=== PATIENT | female | born 1935 | race Caucasian/White ===

== ENCOUNTER 2017-08-26 08:00 | Inpatient (IN) ==
[2017-09-02] MEDS ORDERED: BUPivacaine Liposome/PF (Exparel) Inj 20ml vial INFIL ONE ×2 (06:00→06:52)
[2017-09-02] MEDS ORDERED: Tranexamic Acid 1,000 MG in Sodium Chloride 0.9% 100 ML IV SCH (06:00)
[2017-09-02] MEDS ORDERED: TRANEXAMIC ACID 1,000 MG / 10 ML VIAL ONE (06:00)
[2017-09-02] MEDS ORDERED: ceFAZolin Inj 2gm (Premix) 2 GM/50 ML BAG IV ONE ×2 (06:00)
[2017-09-02] MEDS ORDERED: LIDOCAINE W/ SODIUM BICARB 0.5 ML SYR ONE (06:00)
[2017-09-02] MEDS ORDERED: Ketorolac Inj 30 MG, Morphine Inj 5 MG, BUPivacaine Inj 0.25% PF 150 MG SPLASH ONE ×3 (06:00)
[2017-09-02] MEDS ORDERED: Lactated Ringers 1,000 ML PRIMARY IV ONE ×3 (06:00→11:23)
[2017-09-02] MEDS ORDERED: Lactated Ringers 1,000 ML PRIMARY IV SCH (06:00)
[2017-09-02] MEDS ORDERED: LIDOCAINE W/ SODIUM BICARB 0.5 ML SYR SUBD ONE (06:00)
[2017-09-02] MEDS ORDERED: Sodium Chloride 0.9% 500 ML ONE ×2 (06:44→10:57)
[2017-09-02] MEDS ORDERED: Sodium Chloride 0.9% 2,000 ML ONE (06:44)
[2017-09-02] MEDS ORDERED: PROPOFOL 10 MG/1 ML (200 MG/20 ML) VIAL IV ONE (06:52)
[2017-09-02] MEDS ORDERED: HEPARIN 10,000 UNIT/1 ML ONE (06:52)
[2017-09-02] MEDS ORDERED: Gentamicin Inj 40 MG/ML VIAL ONE (06:52)
[2017-09-02] MEDS ORDERED: MIDAZOLAM 5 MG/1 ML ONE (06:52)
[2017-09-02] MEDS ORDERED: fentaNYL Inj 250 MCG/5 ML VIAL ONE (06:52)
[2017-09-02] MEDS ORDERED: Sodium Chloride 0.9% vial 10 ML ONE (06:52)
[2017-09-02] MEDS ORDERED: LIDOCAINE MPF 2% - 5 ML (20 MG/1 ML) ONE (06:52)
[2017-09-02] MEDS ORDERED: Sodium Chloride 0.9% vial 40 ML ONE (06:52)
[2017-09-02] MEDS ORDERED: VECURONIUM BROMIDE 10 MG VIAL ONE (07:05)
[2017-09-02] MEDS ORDERED: KETAMINE HCL 100 MG/ML SYRINGE ONE (07:05)
[2017-09-02] MEDS ORDERED: LIDOCAINE W/ SODIUM BICARB 0.5 ML SYR SUBD PRN (07:18)
[2017-09-02] MEDS ORDERED: ONDANSETRON 4 MG/2 ML VIAL IVP PRN ×2 (07:18→12:34)
[2017-09-02] MEDS ORDERED: Ondansetron ODT Tab 8 MG TAB PO PRN ×2 (07:18→12:34)
[2017-09-02] MEDS ORDERED: ATROPINE SULFATE 0.4 MG/1 ML VIAL IVP PRN (07:18)
[2017-09-02] MEDS ORDERED: NORMAL SALINE 10 ML SYRINGE FLUSH IVP PRN ×2 (07:18→12:34)
[2017-09-02] MEDS ORDERED: fentaNYL Inj 100 MCG/2 ML VIAL IVP PRN (07:18)
--- NOTE | 2017-09-02 07:20 | CRNA.PROGR ---
Anesthesia Time - - Start date: 09/02/17 End date: 09/02/17 - Procedure/Recovery Time Anesthesia : Time In: 07:46 Anesthesia : Time Out: 11:21 Anesthesia : Total Time: 215 - Total Anesthesia Time Total Anesthesia Time (minutes): 215 - Other Weight: 78.018 kg Height: 5 ft 6 in Body Mass Index (BMI): 27.7 Physical Status: P2 (Age 81, HTN) Anesthesia Type: General Anesthesia : ET
[2017-09-02] MEDS ORDERED: ePHEDrine Inj 50 MG/ML AMP ONE (08:20)
[2017-09-02] MEDS ORDERED: Hetastarch 6% + NS 500 ML IV ONE (08:31)
[2017-09-02] MEDS ORDERED: HYDROmorphone 2 MG/1 ML ONE (09:43)
[2017-09-02] MEDS ORDERED: DEXAMETHASONE PF 10 MG/1 ML VIAL ONE (10:36)
[2017-09-02] MEDS ORDERED: ONDANSETRON 4 MG/2 ML VIAL ONE (10:49)
[2017-09-02] MEDS ORDERED: Sodium Chloride 0.9% 1,000 ML ONE (11:03)
--- NOTE | 2017-09-02 11:32 | CRNA.PROGR ---
Post Anesthesia Phase II - Post Anesthesia Phase II Patient Stable and Discharged To: Med/Surg Care Assumed By Surgeon: Best King MD Temperature: 97.5 F Pulse Rate: 72 Respiratory Rate: 18 Blood Pressure: 150/83 Pulse Ox: 93 Total Ester Score at Discharge: 9 Post Anesthesia Discharge Criteria Met: Yes
--- NOTE | 2017-09-02 11:32 | CRNA.PROGR ---
Anesthesia Recovery Phase I - Post Anesthesia Evaluation Patient's Condition on Arrival in Phase I: Stable Patient's Condition on Arrival in Phase II: Stable Pain Level: 2
[2017-09-02] MEDS: HYDROmorphone 2 MG/1 ML IVP PRN ×2 (11:58→12:03)
--- NOTE | 2017-09-02 12:13 | ORTHO.OP ---
- - -: See Dictated Operative Report Procedure Codes - Hip Procedures Primary Hip Procedure: 40825 : TERRY (New ma ASSISTED)
[2017-09-02] MEDS: Lactated Ringers 1,000 ML PRIMARY IV SCH ×2 (12:30→20:44)
[2017-09-02] MEDS ORDERED: Prochlorperazine Tab 10 MG TAB PO PRN (12:34)
[2017-09-02] MEDS ORDERED: BISACODYL 5 MG TABLET PO PRN (12:34)
[2017-09-02] MEDS ORDERED: CALCIUM CARBONATE 500 MG (TUMS) CHEWABLE TABLET PO PRN (12:34)
[2017-09-02] MEDS ORDERED: HYDROmorphone 2 MG/1 ML IVP PRN (12:34)
[2017-09-02] MEDS ORDERED: diphenhydrAMINE 25 MG CAPSULE PO PRN (12:34)
[2017-09-02] MEDS ORDERED: MAG HYDROX/AL HYDROX/SIMETH 30 ML SUSP PO PRN (12:34)
[2017-09-02] MEDS ORDERED: BISACODYL 10 MG SUPPOSITORY RECTAL PRN (12:34)
[2017-09-02] MEDS ORDERED: ACETAMINOPHEN 325 MG TABLET PO PRN (12:34)
[2017-09-02] MEDS: HYDROcodone-APAP 7.5 MG-325 MG TABLET PO PRN ×2 (13:37→20:30)
--- NOTE | 2017-09-02 14:49 | CONSULT ---
Consult Note - Consult Consult Date: 09/02/17 Reason for Consult: PostOp Consulation : Ortho Requesting Physician: Dr. King Primary Care Provider: NONE NONE HPI - History of Present Illness Date of Service: 09/02/17 Time of Service: 14:44 Chief Complaint: Hip pain History of Present Illness: This very pleasant 81-year-old female with hypercholesterolemia and hypertension who came in for a left total hip arthroplasty done by Dr. King. Please see his surgical notes for that. We were asked to see the patient to advise on medical issues noted above here. The patient states postoperatively she feels very well other than she is sleepy. She does not have any chest pain, shortness breath, nausea or vomiting. She states that she can get constipated and usually takes an entire Of MiraLAX daily and had used Senokot the last time she had surgery as well. She had been struggling with left hip pain and difficulty with ambulation for some time due to severe arthritis. Past Medical History Medical History: 1. Hypertension. 2. Osteoarthritis. 3. Hypercholesterolemia Surgical History: 1. 3. 2. Cholecystectomy. 3. Appendectomy. 4. Knee surgery 2. 5. Hernia repair. 6. Rectocele repair Pertinent Family History: Significant for diabetes and brain aneurysm Past Social History: Does not smoke or drink. Had 2 children but unfortunately one at due to placental abruption. 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 Tobacco Use: Never Smoker In the Past 12 Months, Have Used or Abuse Any of the Following Substance: None Alcohol Use: None Review of Systems - Respiratory Respiratory: REPORTS: Negative System Review - Cardiovascular Cardiovascular: REPORTS: Negative System Review - Gastrointestinal Gastrointestinal / Abdominal: REPORTS: Negative System Review - Genitourinary Genitourinary: REPORTS: Incontinence (Has urinary incontinence issues. Chronic. ) - Musculoskeletal Musculoskeletal: REPORTS: See HPI - Neurological Neurologic: REPORTS: Headache (States she has headaches on and off. Chronic issue.) Medication / Allergies Home Medications: Home Medications 3 Medication Instructions Recorded Confirmed Type atorvastatin 20 mg tablet 20 mg PO QDAY 07/02/17 09/02/17 History fluoxetine 10 mg capsule 10 mg PO QDAY cap 07/02/17 09/02/17 History fosinopril 20 mg tablet 20 mg PO QDAY tab 07/02/17 09/02/17 History meloxicam 15 mg tablet 15 mg PO QDAY PRN #30 tab 07/02/17 09/02/17 Rx Multivit-Min/Iron/Folic/Lutein 1 ea PO DAILY 09/02/17 09/02/17 History [Centrum Silver Women Tablet] Allergies/Adverse Reactions: Allergies 3 Allergy/AdvReac Type Severity Reaction Status Date / Time No Known Allergies Allergy Verified 09/02/17 06:11 Exam - Vitals Vital Signs: Vital Signs Temperature 97.6 F Temperature Source Temporal Artery Scan Pulse Rate [Apical] 74 Pulse Rate [Pulse Oximeter] 77 Pulse Rate 74 Respiratory Rate 18 Blood Pressure [Left Arm] 126/65 Blood Pressure 131/60 Pulse Ox 95 Oxygen Flow Rate 1 Oxygen Delivery Method Nasal Cannula Height 5 ft 6 in Weight 172 lb - General General Appearance: No Acute Distress, Cooperative - Head Head Exam: Normal Inspection, Normocephalic, Atraumatic - Eye Eye Exam: POSITIVE: No Scleral Icterus - ENT ENT Exam: POSITIVE: Mucous Membranes Moist - Respiratory Respiratory Exam: POSITIVE: Clear to Auscultation - Bilaterally, Breathing Non Labored - Cardiovascular Cardiovascular Exam: POSITIVE: RRR, No Murmur, No Clicks, No Gallops, No Rubs, No JVD - GI/Abdominal GI/Abdominal Exam: POSITIVE: Normal Bowel Sounds, Non Tender, Non Distended, Soft - Rectal Rectal Exam: POSITIVE: Deferred - External Exam: POSITIVE: Deferred Exam: POSITIVE: Baptiste Catheter in Place (Urine appears clear.) - Extremities Extremities Exam: POSITIVE: No Clubbing Present, No Edema Present, No Cyanosis Present Additional Extremities Exam Details: Left hip is dressed, dressing is clean, dry, intact. - Neurological Neurological Exam: POSITIVE: Alert, Oriented x 3, No Facial Droop, Speech Intact / Clear Results - Labs Additional Lab Results: Urinalysis from 09/01/2017 is negative. Assessment and Plan - Patient Problems (1) Hypertension Current Visit: Yes Status: Acute Code(s): I10 - Essential (primary) hypertension Qualifiers: Hypertension type: essential hypertension Qualified Code(s): I10 - Essential (primary) hypertension (2) Hypercholesterolemia Current Visit: Yes Status: Acute Code(s): E78.00 - Pure hypercholesterolemia , unspecified (3) Arthritis of left hip Current Visit: No Status: Acute Code(s): M16.12 - Unilateral primary osteoarthritis, left hip (4) Status post left hip replacement Current Visit: Yes Status: Acute Code(s): Z96.642 - Presence of left artificial hip joint - Assessment / Plan Additional Assessment/Plan Details: Given that she is on an ROB inhibitor, and nurse associations with perioperative hypotension and renal failure, I will go ahead and hold off on that medication. If blood pressure start to escalate him he can resume it then. Will check electrolytes in a.m. DVT prophylaxis as per orthopedics. Medicines for constipation and she instructed. She stated that she takes MiraLAX daily an entire capful. She also stated to me that she does Senokot in the setting of surgeries. I'll write for 2 packets of MiraLAX daily and I'll start some Senokot tonight. She's had real issues with constipation that have been inhibiting in terms of postsurgical recovery in the past. CBC in a.m. PT and OT. Hopefully catheter out within 48 hours. Plan above discussed with patient, her , her son and they agreed. We will be glad to assist in this patient's care during her hospital stay.
--- NOTE | 2017-09-02 16:02 | DI ---
XR HIP COMPLETE MIN 2VW U/L,09/02/2017 11:08 AM: Clinical History: Osteoarthritis of the left hip. Previous Exam: None at this facility. Findings: AP. View of the pelvis as well as an AP view of the left hip and a crosstable lateral view left hip a re obtained, and demonstrate postsurgical changes consistent with a left total hip arthroplasty. Overlying skin anne-marie are noted. There is a Baptiste catheter is noted. Patient is status post transpedicular fusion of L5/S1. Mild degenerative changes are seen of the symphysis pubis. Impression: Status post left total hip arthroplasty.
[2017-09-02] MEDS: ceFAZolin Inj 2gm (Premix) 2 GM/50 ML BAG IV SCH (16:04)
[2017-09-02] MEDS: DOCUSATE 100 MG CAPSULE PO SCH (20:30)
[2017-09-02] MEDS: ATORVASTATIN 20 MG TABLET PO SCH (20:30)
[2017-09-02] MEDS ORDERED: Senna/Docusate Tab 1 TAB TAB PO ONE (21:00)
[2017-09-03] MEDS: ceFAZolin Inj 2gm (Premix) 2 GM/50 ML BAG IV SCH (00:35)
[2017-09-03] MEDS: HYDROcodone-APAP 7.5 MG-325 MG TABLET PO PRN ×4 (02:26→20:45)
[2017-09-03 04:40] LABS: Hematocrit [HCT] 26.7 % (37.0-47.0); Hemoglobin [HGB] 8.5 g/dL (12.0-16.0); MEAN CORPUSCULAR HEMOGLOBIN 29.8 PG (27-31); MEAN CORPUSCULAR HGB CONC 31.8 g/dL (33-37); MEAN CORPUSCULAR VOLUME 93.7 FL (81-99); MEAN PLATELET VOLUME 9.8 FL (7.4-12.2); RED BLOOD COUNT 2.85 10^6/uL (4.20-5.40)
[2017-09-03 04:51] LABS: BLOOD UREA NITROGEN 14 mg/dL (7-22)
--- NOTE | 2017-09-03 07:51 | ORTHO.PROG ---
Last Taken Vital Signs: Vital Signs - Last Taken Temperature 97.0 F 09/03/17 04:25 Pulse Rate 77 09/03/17 04:25 Respiratory Rate 12 09/03/17 07:00 Blood Pressure 123/56 09/03/17 04:25 Pulse Ox 93 09/03/17 05:20 Subjective: Patient doing well this morning, enjoyed helping the Baptiste and since she didn't have to get up 5 times at night which she usually averages to go to the bathroom Objective: Motor and sensory exam lower extremity is good nonfocal she has no tenderness over the calf popliteal space adductor hiatus region or thigh region except for over the surgical site area. Very minimal swelling. Dressings clean and dry. Drain is in place with serosanguineous fluid. Laboratory Results 09/03/17 09/03/17 Range/Units 04:12 04:12 WBC 8.57 (4.8-10.8) 10^3/uL RBC 2.85 L (4.20-5.40) 10^6/uL Hgb 8.5 L (12.0-16.0) g/dL Hct 26.7 L (37.0-47.0) % MCV 93.7 (81-99) FL MCH 29.8 (27-31) PG MCHC 31.8 L (33-37) g/dL RDW Std Deviation 49.5 (39-50) fL RDW Coeff of Seda 15.1 H (11.5-14.5) % Plt Count 132 L (140-350) 10*3/uL MPV 9.8 (7.4-12.2) FL Sodium 136 (135-145) meq/L Potassium 4.1 (3.8-5.2) meq/L Chloride 100 (98-112) meq/L Carbon Dioxide 29 (23-33) meq/L Anion Gap 7 (5-20) BUN 14 (7-22) mg/dL Creatinine 0.5 (0.50-1.20) mg/dL BUN/Creatinine Ratio 28.00 H (6-20) Glucose 116 H (78-110) mg/dL Calculated Osmolality 283.0 (267-292) mOsm/kg Calcium 8.6 L (8.7-10.7) mg/dL Intake and Output - 8hrs 09/02/17 09/02/17 09/03/17 04/18/18 13:59 21:59 05:59 13:59 Intake: IV 3100 / 3100 338 / 338 1187 / 1187 Intake Oral Amount 1440 / 1440 400 / 400 OrthoPat 325 / 325 Output: Output, Drainage Amount 30 / 30 90 / 90 150 / 150 Left Hip 30 / 30 90 / 90 150 / 150 Output, Urinary Catheter Amount 275 / 275 100 / 100 500 / 500 Output, Urine Amount 200 / 200 150 / 150 Output, Estimated Blood Loss 600 / 600 Amount Other: Percent Meal Consumed Dinner ate toast for supper Drains Hemovac Negative Pressure Drain left hip Hemovac Negative Pressure Drain Weight 78.018 kg Weight Measurement Method Standing Scale Vital Signs (24 hrs) Temp Pulse Pulse Pulse Resp BP BP 09/03/17 07:00 12 09/03/17 05:20 09/03/17 04:25 97.0 F 77 16 123/56 09/02/17 23:58 97.0 F 74 16 111/58 09/02/17 20:29 98.0 F 75 16 122/56 09/02/17 19:00 16 09/02/17 17:00 97.3 F 74 20 102/55 09/02/17 15:00 09/02/17 13:45 97.6 F 77 18 126/65 09/02/17 13:15 97.4 F 75 95 H 128/62 09/02/17 13:00 97.1 F 71 16 130/73 09/02/17 12:45 98 F 78 14 134/63 09/02/17 12:36 74 14 09/02/17 12:30 97.8 F 78 14 130/69 09/02/17 12:14 74 16 131/60 09/02/17 12:04 74 16 141/64 09/02/17 11:55 74 16 148/76 09/02/17 11:45 96.9 F 75 16 135/66 09/02/17 11:36 81 16 150/83 09/02/17 11:32 97.5 F 72 18 150/83 09/02/17 11:31 80 16 109/62 09/02/17 11:26 75 16 98/49 09/02/17 11:21 79 14 98/48 09/02/17 11:16 97.1 F 84 14 106/50 Pulse Ox 09/03/17 07:00 09/03/17 05:20 93 09/03/17 04:25 93 09/02/17 23:58 92 09/02/17 20:29 94 09/02/17 19:00 09/02/17 17:00 97 09/02/17 15:00 97 09/02/17 13:45 95 09/02/17 13:15 95 09/02/17 13:00 99 09/02/17 12:45 98 09/02/17 12:36 09/02/17 12:30 100 09/02/17 12:14 100 09/02/17 12:04 100 09/02/17 11:55 100 09/02/17 11:45 100 09/02/17 11:36 100 09/02/17 11:32 93 09/02/17 11:31 100 09/02/17 11:26 100 09/02/17 11:21 98 09/02/17 11:16 97 Assessment: Left total hip replacement overall doing well Anemia Hyperactive bladder Plan: The patient will continue with physical therapy and add occupational therapy for mobilization activities. We will have the patient utilize anticoagulation with pneumatic sequential compression devices and the aspirin. Mobilize. Pain control
[2017-09-03] MEDS: ASPIRIN 325 MG EC TABLET PO SCH ×2 (08:33→20:45)
[2017-09-03] MEDS: DOCUSATE 100 MG CAPSULE PO SCH ×3 (08:33→20:45)
[2017-09-03] MEDS: Multivitamin Tab 1 TAB PO SCH (08:33)
[2017-09-03] MEDS: Senna/Docusate Tab 1 TAB TAB PO SCH ×2 (08:33→08:48)
[2017-09-03] MEDS: POLYETHYLENE GLYCOL 3350 17 GM POWDER PO SCH (08:33)
[2017-09-03] MEDS: FLUOXETINE HCL 10 MG PO SCH (08:39)
[2017-09-03] MEDS ORDERED: FOSINOPRIL SODIUM 20 MG PO SCH (09:00)
[2017-09-03] MEDS ORDERED: Sodium Chloride 0.9% 500 ML PRIMARY IV ONE (12:08)
--- NOTE | 2017-09-03 12:16 | PDOC(PROG) ---
Date and Time of Service: 09/03/2017, 1210 Interval History: no chest pain. very fatigued, felt lightheaded. no SOB. no N/V. states hip pain is controlled. Objective : Data - Labs CBC and BMP: 09/03/17 04:12 09/03/17 04:12 Objective : Exam - General General Appearance: No Acute Distress, Cooperative Additional General Exam Details: Vital Signs - Last Taken Temperature 99.1 F 09/03/17 11:58 Pulse Rate 72 09/03/17 11:58 Respiratory Rate 16 09/03/17 11:58 Blood Pressure 102/47 09/03/17 11:58 Pulse Ox 97 09/03/17 11:58 - Eye Eye Exam: No Scleral Icterus - ENT ENT Exam: Mucous Membranes Moist - Respiratory Respiratory Exam: Clear to Auscultation - Bilaterally, Breathing Non Labored - Cardiovascular Cardiovascular Exam: RRR, No Murmur, No Clicks, No Gallops, No Rubs, No JVD - GI/Abdominal GI/Abdominal Exam: Normal Bowel Sounds, Non Tender, Non Distended, Soft - Extremities Extremities Exam: No Clubbing Present, No Edema Present, No Cyanosis Present - Neurological Neurological Exam: Alert, Oriented x 3, No Facial Droop, Speech Intact / Clear Assessment and Plan - Patient Problems (1) Hypertension Current Visit: Yes Status: Acute Code(s): I10 - Essential (primary) hypertension Qualifiers: Hypertension type: essential hypertension Qualified Code(s): I10 - Essential (primary) hypertension (2) Hypercholesterolemia Current Visit: Yes Status: Acute Code(s): E78.00 - Pure hypercholesterolemia , unspecified (3) Arthritis of left hip Current Visit: No Status: Acute Code(s): M16.12 - Unilateral primary osteoarthritis, left hip (4) Status post left hip replacement Current Visit: Yes Status: Acute Code(s): Z96.642 - Presence of left artificial hip joint (5) Anemia Current Visit: Yes Status: Acute Code(s): D64.9 - Anemia, unspecified Qualifiers: Anemia type: unspecified type Qualified Code(s): D64.9 - Anemia, unspecified - Assessment / Plan Additional Assessment/Plan Details: would likely benefit from blood transfusion, with symptomatic anemia. continue PT and OT hold off on ACEI labs in AM aspirin for DVT prophylaxis
--- NOTE | 2017-09-03 15:08 | PTI REPORT ---
Thank you for the referral of Citlalli Tai. She was seen on 09/02/17 for an inpatient evaluation status post left total hip arthroplasty. SUBJECTIVE: The patient is a 81-year-old female. The patient reports she is very fatigued. She got up to her room not too long ago. She states she is not having any pain but is aware that she still has a lot of the anesthesia on board. She is only willing to get up because Dr. King wants her to, but then wants to get back in bed so that she can take a nap as soon as possible. PAST MEDICAL HISTORY: Past medical history can be found in the patient's medical record. OBJECTIVE FINDINGS: Pain: At this time the patient denies having pain; however, she was just brought upstairs to the third floor shortly after completion of her operation. Strength/range of motion: Strength and range of motion were not tested due to surgical precautions. Incision: Her incision was unable to be inspected due to the post-op bandage. Bed mobility: The patient was able to perform bed mobility from supine to edge of bed with verbal cues and min assist for the left lower extremity. Transfers: The patient was able to perform a sit to stand transfer with weight- bearing as tolerated, walker, gait belt, and contact guard assistance x2 minutes while standing edge of bed while on 2 liters of oxygen via nasal cannula. Ambulation: No ambulatory activities were attempted at this time. ASSESSMENT: Problem List: Pain in the left hip Decreased passive and active range of motion in the left hip Decreased strength in the left hip Patient must adhere to total hip precautions Short-Term Goals: To be met by discharge from inpatient: Patient will be able to transfer from bed to stand independently. Patient will be able to ambulate approximately 100 feet with walker, weight- bearing as tolerated. Patient will be able to ascend and descend five stairs with walker, weight- bearing as tolerated. Patient will be instructed in total hip precautions. Long-Term Goals: To be met following discharge from inpatient: Patient will be seen by outpatient physical therapy. TREATMENT PLAN: Patient will be seen B.I.D during the week and one time per day over the weekend as an inpatient to address the above goals and objectives. INITIAL TREATMENT: Treatment today consisted of the initial evaluation followed by the patient performing bed mobility from supine to edge of bed followed by the patient transferring from sit to stand and standing x2 minutes. The patient then required moderate assistance to transfer back into bed. The patient had a walker with wheels and we transformed her walker into a standard walker with gliders. We will progress with ambulatory activities tomorrow morning. CHRISTO
--- NOTE | 2017-09-03 15:50 | PT AM DAY ---
Diagnosis : Left Total Hip Arthroplasty AM - Physical Therapy S: The patient reports she is starting to have a lot more pain into her hip , but feels like she is ready to get up. O: Today's therapy consisted of the patient requiring moderate assistance for bed mobility from supine to edge of bed as well as max assist from edge of bed back to supine. She was able to perform three sit to stand transfers with weight-bearing as tolerated on that left lower extremity with walker, gait belt , and contact guard assistance as well as up to three minutes of standing weight shifting. She was able to ambulate 8 feet within her room and transfer to the chair. A: The patient is progressing appropriately at this time. P: Continue seeing patient BID during the week and one time per day over the weekend for transfers, ambulation, and range of motion/strengthening exercises. MTDD
--- NOTE | 2017-09-03 16:57 | PT.PROG ---
Progress Note Progress Note: Physical Therapy was held this afternoon per nursing as pt was receiving blood transfusion. We will resume with therapy in the AM tomorrow.
--- NOTE | 2017-09-03 17:21 | OT.PROG ---
Progress Note Progress Note: Occupational therapy evaluation not completed due to nursing request secondary to pt. needing additional units of blood. CHACHO Peraza/Shannan
[2017-09-03] MEDS: ATORVASTATIN 20 MG TABLET PO SCH (20:45)
[2017-09-04] MEDS: HYDROcodone-APAP 7.5 MG-325 MG TABLET PO PRN ×3 (01:07→12:34)
[2017-09-04 05:22] LABS: Hematocrit [HCT] 34.6 % (37.0-47.0); Hemoglobin [HGB] 11.2 g/dL (12.0-16.0); MEAN CORPUSCULAR HEMOGLOBIN 29.1 PG (27-31); MEAN CORPUSCULAR HGB CONC 32.4 g/dL (33-37); MEAN CORPUSCULAR VOLUME 89.9 FL (81-99); MEAN PLATELET VOLUME 10.3 FL (7.4-12.2); RED BLOOD COUNT 3.85 10^6/uL (4.20-5.40)
[2017-09-04 05:30] LABS: BLOOD UREA NITROGEN 12 mg/dL (7-22)
--- NOTE | 2017-09-04 08:01 | ORTHO.PROG ---
Last Taken Vital Signs: Vital Signs - Last Taken Temperature 98.3 F 09/04/17 04:29 Pulse Rate 69 09/04/17 04:29 Respiratory Rate 18 09/04/17 04:29 Blood Pressure 119/57 09/04/17 04:29 Pulse Ox 92 09/04/17 04:39 Subjective: Patient doing well pain control is getting better receive blood yesterday Objective: Dressing is clean and dry mild to moderate amount of swelling of the thigh. No calf, popliteal or adductor hiatus or distal thigh pain. No passive stretch pain. Dressings are clean and dry. Motor and sensory exam is nonfocal Laboratory Results 09/01/17 09/02/17 09/04/17 Range/Units 13:27 06:41 04:38 WBC 9.07 (4.8-10.8) 10^3/uL RBC 3.85 L (4.20-5.40) 10^6/uL Hgb 11.2 L (12.0-16.0) g/dL Hct 34.6 L (37.0-47.0) % MCV 89.9 (81-99) FL MCH 29.1 (27-31) PG MCHC 32.4 L (33-37) g/dL RDW Std Deviation 54.1 H (39-50) fL RDW Coeff of Seda 16.9 H (11.5-14.5) % Plt Count 151 (140-350) 10*3/uL MPV 10.3 (7.4-12.2) FL Sodium (135-145) meq/L Potassium (3.8-5.2) meq/L Chloride (98-112) meq/L Carbon Dioxide (23-33) meq/L Anion Gap (5-20) BUN (7-22) mg/dL Creatinine (0.50-1.20) mg/dL BUN/Creatinine Ratio (6-20) Glucose (78-110) mg/dL Calculated Osmolality (267-292) mOsm/kg Calcium (8.7-10.7) mg/dL Blood Type O POSITIVE Antibody Screen Negative Crossmatch See Detail See Detail 09/04/17 Range/Units 04:38 WBC (4.8-10.8) 10^3/uL RBC (4.20-5.40) 10^6/uL Hgb (12.0-16.0) g/dL Hct (37.0-47.0) % MCV (81-99) FL MCH (27-31) PG MCHC (33-37) g/dL RDW Std Deviation (39-50) fL RDW Coeff of Seda (11.5-14.5) % Plt Count (140-350) 10*3/uL MPV (7.4-12.2) FL Sodium 138 (135-145) meq/L Potassium 3.7 L (3.8-5.2) meq/L Chloride 98 (98-112) meq/L Carbon Dioxide 30 (23-33) meq/L Anion Gap 10 (5-20) BUN 12 (7-22) mg/dL Creatinine 0.5 (0.50-1.20) mg/dL BUN/Creatinine Ratio 24.00 H (6-20) Glucose 87 (78-110) mg/dL Calculated Osmolality 284.0 (267-292) mOsm/kg Calcium 9.1 (8.7-10.7) mg/dL Blood Type Antibody Screen Crossmatch Assessment: (Anterior total hip replacement doing well Plan: Continue with current plan with DVT prophylaxis, physical therapy and occupational therapy, the patient to continue with the pain control. We'll see how she does moving forward in time.
[2017-09-04] MEDS: DOCUSATE 100 MG CAPSULE PO SCH ×2 (08:40→21:31)
[2017-09-04] MEDS: FLUOXETINE HCL 10 MG PO SCH (08:40)
[2017-09-04] MEDS: ASPIRIN 325 MG EC TABLET PO SCH ×2 (08:41→21:31)
[2017-09-04] MEDS: POLYETHYLENE GLYCOL 3350 17 GM POWDER PO SCH (08:41)
[2017-09-04] MEDS: Senna/Docusate Tab 1 TAB TAB PO SCH (08:41)
[2017-09-04] MEDS: Multivitamin Tab 1 TAB PO SCH (08:41)
--- NOTE | 2017-09-04 13:20 | PT.PROG ---
Progress Note Progress Note: S. Patient was happy tp participate. She said she want to get as much dont as possible so she can go home. O. Pt ambulated from bed to w/c in hallway. 20 feet, she waas transported to therapy where she got heat on her hip x 20 min. She then performed ther x including mat activities: with right hip, slr, hip ab/ad, glut sets, quad sets, on left hip, 4 way ankle, SAQ, quad sets. heel slides, boxes, nustep x 5min. she was then handed to OT. A. Pt walked all the way back to her room for OT. She is doing better and we hope to do more functional stuff this afternoon. P. Cont POC Beverley Miller LEARNING ENGINEER
[2017-09-04] MEDS ORDERED: POTASSIUM CHLORIDE 20 MEQ TAB PO ONE (15:35)
--- NOTE | 2017-09-04 15:38 | PDOC(PROG) ---
Date and Time of Service: 09/04/2017, 1535 Interval History: no chest pain, SOB, Nausea or vomiting. hip is sore, but at a 2 out of 10. therapy going well. less light headed, more energy, and felt like transfusion really helped. Objective : Data - Labs CBC and BMP: 09/04/17 04:38 09/04/17 04:38 Objective : Exam - General General Appearance: No Acute Distress, Cooperative Additional General Exam Details: Vital Signs (24 hrs) Temp Pulse Pulse Pulse Resp BP BP 09/04/17 11:30 98.8 F 72 16 112/61 09/04/17 08:24 97.4 F 70 18 112/53 09/04/17 04:39 09/04/17 04:29 98.3 F 69 18 119/57 09/04/17 01:00 97.8 F 75 16 125/57 09/03/17 19:56 98.2 F 82 16 115/51 09/03/17 17:58 99.6 F 85 16 100/48 09/03/17 17:18 100.3 F H 84 16 117/46 09/03/17 17:03 99.3 F 79 16 105/47 09/03/17 16:46 99.9 F H 83 16 110/50 09/03/17 16:33 99.8 F H 83 16 120/56 09/03/17 16:07 99.2 F 79 18 118/59 Pulse Ox 09/04/17 11:30 96 09/04/17 08:24 92 09/04/17 04:39 92 09/04/17 04:29 91 09/04/17 01:00 90 09/03/17 19:56 92 09/03/17 17:58 09/03/17 17:18 88 09/03/17 17:03 95 09/03/17 16:46 95 09/03/17 16:33 92 09/03/17 16:07 93 fever noted no other signs or symptoms of infection. - Head Head Exam: Normal Inspection, Normocephalic - Eye Eye Exam: No Scleral Icterus - ENT ENT Exam: Mucous Membranes Moist - Respiratory Respiratory Exam: Clear to Auscultation - Bilaterally, Breathing Non Labored - Cardiovascular Cardiovascular Exam: RRR, No Murmur, No Clicks, No Gallops, No Rubs, No JVD - GI/Abdominal GI/Abdominal Exam: Normal Bowel Sounds, Non Tender, Non Distended, Soft - Extremities Extremities Exam: No Clubbing Present, No Edema Present, No Cyanosis Present - Neurological Neurological Exam: Alert, Oriented x 3, No Facial Droop, Speech Intact / Clear Assessment and Plan - Patient Problems (1) Hypertension Current Visit: Yes Status: Acute Code(s): I10 - Essential (primary) hypertension Qualifiers: Hypertension type: essential hypertension Qualified Code(s): I10 - Essential (primary) hypertension (2) Hypercholesterolemia Current Visit: Yes Status: Acute Code(s): E78.00 - Pure hypercholesterolemia , unspecified (3) Arthritis of left hip Current Visit: No Status: Acute Code(s): M16.12 - Unilateral primary osteoarthritis, left hip (4) Status post left hip replacement Current Visit: Yes Status: Acute Code(s): Z96.642 - Presence of left artificial hip joint (5) Anemia Current Visit: Yes Status: Acute Code(s): D64.9 - Anemia, unspecified Qualifiers: Anemia type: unspecified type Qualified Code(s): D64.9 - Anemia, unspecified - Assessment / Plan Additional Assessment/Plan Details: anemia is better post transfusion yesterday pain control going well DVT prophylaxis as per ortho continue home CPAP for KATIE hold ACEI PT and OT home tomorrow or Friday? as per ortho if no BM by tomorrow, may need to consider enema
--- NOTE | 2017-09-04 17:02 | PT.PROG ---
Progress Note Progress Note: S: Pt reports that she is doing okay this afternoon - states that she was a little stiff after sitting up in her chair all morning after AM therapy session. Pt participated with OT prior to PT. O: Tx consisted of: MHP x 20 min to L hip f/b instruction in 10 x each of the following - glute squeezes, SAQ, 4 way ankle, LAQ, STS, and step ups on a 4 inch box. Pt ambulated x 150 ft with CGA x 1 and walker to her room. Pt was left in her bed with alarm set and call light within reach. A: Pt tolerated the afternoon session of PT well. Pt required mod v/c with step ups onto 4 inch box but able to complete with CGA x 1. We will plan to try stair training tomorrow. P: Continue per POC.
[2017-09-04] MEDS: ATORVASTATIN 20 MG TABLET PO SCH (21:31)
[2017-09-05 05:01] LABS: Hematocrit [HCT] 33.6 % (37.0-47.0); Hemoglobin [HGB] 11.1 g/dL (12.0-16.0); MEAN CORPUSCULAR HEMOGLOBIN 29.9 PG (27-31); MEAN CORPUSCULAR VOLUME 90.6 FL (81-99); MEAN PLATELET VOLUME 10.5 FL (7.4-12.2); RED BLOOD COUNT 3.71 10^6/uL (4.20-5.40)
[2017-09-05 05:08] LABS: BLOOD UREA NITROGEN 11 mg/dL (7-22)
[2017-09-05] MEDS: Multivitamin Tab 1 TAB PO SCH (08:46)
[2017-09-05] MEDS: POLYETHYLENE GLYCOL 3350 17 GM POWDER PO SCH (08:46)
[2017-09-05] MEDS: Senna/Docusate Tab 1 TAB TAB PO SCH (08:46)
[2017-09-05] MEDS: DOCUSATE 100 MG CAPSULE PO SCH ×2 (08:47→20:27)
[2017-09-05] MEDS: ASPIRIN 325 MG EC TABLET PO SCH ×2 (08:47→20:28)
[2017-09-05] MEDS: FLUOXETINE HCL 10 MG PO SCH (08:47)
[2017-09-05] MEDS: HYDROcodone-APAP 7.5 MG-325 MG TABLET PO PRN (08:53)
--- NOTE | 2017-09-05 10:22 | OT.PROG ---
Progress Note Progress Note: Occupational Therapy: 35 min S: pt stated she was feeling fine today and looking forward to going home. O: pt completed ADL task of toileting Independently. pt completed functional ambulation with stander walker and CGA for safety x 145'. moist heat was applied to pts L hip x20 min. pt completed 3# BUE exercises of biceps x 20, chest press x20, shoulder flexion x20, abduction/adduction x20. pt completed yellow TB exercises of biceps x15, triceps x15, flexion x15, extension x15, chest pulls x15. A: pt tolerated session well. pt has a slow but stead pace with exercises. P: pt will practice using AE for dressing and ADL tasks before d/c home.
[2017-09-05] MEDS ORDERED: Fleet Enema w/Mineral Oil 133ml RECTAL ONE (15:16)
--- NOTE | 2017-09-05 15:20 | PDOC(PROG) ---
Date and Time of Service: 09/05/2017, 1518 Interval History: During Therapeutic Today. Was Walking and Ambulate Very Well with Her Walker. She Did Some Steps and Did Well with That As Well. No Chest Pain. No Shortness Breath. No Nausea or Vomiting. Feels Somewhat Constipated. States that her leg pain is controlled. Objective : Data - Labs CBC and BMP: 09/05/17 04:28 09/05/17 04:28 Objective : Exam - General General Appearance: No Acute Distress, Cooperative Additional General Exam Details: Vital Signs - Last Taken Temperature 97.2 F 09/05/17 11:45 Pulse Rate 68 09/05/17 11:45 Respiratory Rate 18 09/05/17 11:45 Blood Pressure 110/60 09/05/17 11:45 Pulse Ox 92 09/05/17 11:45 - Eye Eye Exam: No Scleral Icterus - ENT ENT Exam: Mucous Membranes Moist - Respiratory Respiratory Exam: Clear to Auscultation - Bilaterally, Breathing Non Labored - Cardiovascular Cardiovascular Exam: RRR, No Murmur, No Clicks, No Gallops, No Rubs, No JVD - GI/Abdominal GI/Abdominal Exam: Normal Bowel Sounds, Non Tender, Non Distended, Soft - Extremities Extremities Exam: No Clubbing Present, No Edema Present, No Cyanosis Present - Neurological Neurological Exam: Alert, Oriented x 3, No Facial Droop, Speech Intact / Clear Additional Neurological Exam Details: Ambulating well with walker postoperatively. Assessment and Plan - Patient Problems (1) Hypertension Current Visit: Yes Status: Acute Code(s): I10 - Essential (primary) hypertension Qualifiers: Hypertension type: essential hypertension Qualified Code(s): I10 - Essential (primary) hypertension (2) Hypercholesterolemia Current Visit: Yes Status: Acute Code(s): E78.00 - Pure hypercholesterolemia , unspecified (3) Arthritis of left hip Current Visit: No Status: Acute Code(s): M16.12 - Unilateral primary osteoarthritis, left hip (4) Status post left hip replacement Current Visit: Yes Status: Acute Code(s): Z96.642 - Presence of left artificial hip joint (5) Anemia Current Visit: Yes Status: Acute Code(s): D64.9 - Anemia, unspecified Qualifiers: Anemia type: unspecified type Qualified Code(s): D64.9 - Anemia, unspecified - Assessment / Plan Additional Assessment/Plan Details: Given some constipation complaints, order mineral oil enema in addition to MiraLAX and Senokot. PT and OT. DVT prophylaxis. Hold off on any changes to blood pressure medications today. Resume home medications when discharged. Possible discharge tomorrow home? As per orthopedics.
--- NOTE | 2017-09-05 15:50 | ORTHO.PROG ---
Last Taken Vital Signs: Vital Signs - Last Taken Temperature 97.2 F 09/05/17 11:45 Pulse Rate 68 09/05/17 11:45 Respiratory Rate 18 09/05/17 11:45 Blood Pressure 110/60 09/05/17 11:45 Pulse Ox 92 09/05/17 11:45 Subjective: Patient feels she is doing well and making good progress, is able to mobilize and walk reasonably well with a walker but is still slow with mobilization. Pain is becoming better controlled Objective: Examination shows that the PREVENA dressing is in place working well there is no redness erythema mild amount of swelling around the leg she has no calf pain , no popliteal, no adductor hiatus or thigh pain. Motor and sensory exam is nonfocal with good pulses brisk refill Laboratory Results 09/05/17 09/05/17 Range/Units 04:28 04:28 WBC 8.25 (4.8-10.8) 10^3/uL RBC 3.71 L (4.20-5.40) 10^6/uL Hgb 11.1 L (12.0-16.0) g/dL Hct 33.6 L (37.0-47.0) % MCV 90.6 (81-99) FL MCH 29.9 (27-31) PG MCHC 33.0 (33-37) g/dL RDW Std Deviation 53.1 H (39-50) fL RDW Coeff of Seda 16.5 H (11.5-14.5) % Plt Count 148 (140-350) 10*3/uL MPV 10.5 (7.4-12.2) FL Sodium 138 (135-145) meq/L Potassium 3.9 (3.8-5.2) meq/L Chloride 98 (98-112) meq/L Carbon Dioxide 29 (23-33) meq/L Anion Gap 11 (5-20) BUN 11 (7-22) mg/dL Creatinine 0.4 L (0.50-1.20) mg/dL Estimated GFR Risk Control Consultant BUN/Creatinine Ratio 27.50 H (6-20) Glucose 101 (78-110) mg/dL Calculated Osmolality 284.0 (267-292) mOsm/kg Calcium 9.1 (8.7-10.7) mg/dL Vital Signs (24 hrs) Temp Pulse Pulse Resp BP Pulse Ox 09/05/17 11:45 97.2 F 68 18 110/60 92 09/05/17 07:13 97.8 F 78 18 139/74 97 09/05/17 04:06 97.1 F 72 18 134/71 94 09/05/17 00:16 97.0 F 84 18 147/74 92 09/04/17 21:00 98.3 F 88 16 158/74 92 09/04/17 19:00 82 82 09/04/17 16:31 99.0 F 78 18 109/55 96 Assessment: Left anterior total hip replacement doing well Anemia stable Plan: Patient will continue with her current plan with physical therapy and occupational therapy. Pain control seems to be good and we will continue along that same course. We will consider discharge home tomorrow and we will continue with pneumatic sequential devices and aspirin.
--- NOTE | 2017-09-05 15:59 | OT.PROG ---
Progress Note Progress Note: S: Pt. reports that she is tired this afternoon, but overall doing well. O: Pt. completed the following therapeutic exercise with RTB shoulder extension , biceps curls, horizontal abduction, triceps extension, and 4# shoulder flexion and 4# chest press X 15 each. A: Pt. tolerated UE well with 1 minute rest breaks. P: Continue POC. CHACHO Peraza/Shannan
[2017-09-05] MEDS: ATORVASTATIN 20 MG TABLET PO SCH (20:27)
[2017-09-06] MEDS: HYDROcodone-APAP 7.5 MG-325 MG TABLET PO PRN ×2 (02:01→09:25)
[2017-09-06 06:59] VITALS: BP 120/65; RESP 19; TEMP 97.8
[2017-09-06 07:07] VITALS: O2SAT 91
[2017-09-06] MEDS: Senna/Docusate Tab 1 TAB TAB PO SCH (09:20)
[2017-09-06] MEDS: ASPIRIN 325 MG EC TABLET PO SCH (09:20)
[2017-09-06] MEDS: Multivitamin Tab 1 TAB PO SCH (09:20)
[2017-09-06] MEDS: DOCUSATE 100 MG CAPSULE PO SCH (09:20)
[2017-09-06] MEDS: POLYETHYLENE GLYCOL 3350 17 GM POWDER PO SCH (09:21)
[2017-09-06] MEDS: FLUOXETINE HCL 10 MG PO SCH (09:59)
--- NOTE | 2017-09-06 10:18 | ORTHO.PROG ---
Last Taken Vital Signs: Vital Signs - Last Taken Temperature 97.8 F 09/06/17 06:57 Pulse Rate 74 09/06/17 06:57 Respiratory Rate 19 09/06/17 06:57 Blood Pressure 120/65 09/06/17 06:57 Pulse Ox 91 09/06/17 07:00 Subjective: Patient doing well this morning, working with physical therapy Objective: Examination leg show mild amount of swelling I dressing is in place clean and dry there is no evidence of infection there is no drainage within the PREVENA suction drain. Motor and sensory exam is nonfocal good pulses brisk refill mobilizing well. Vital Signs (24 hrs) Temp Pulse Pulse Resp BP Pulse Ox 09/06/17 07:00 91 09/06/17 06:57 97.8 F 74 74 19 120/65 95 09/06/17 06:52 74 09/06/17 05:00 97.5 F 78 16 125/70 93 09/06/17 00:52 97.9 F 88 18 149/73 93 09/05/17 20:46 98.1 F 82 18 143/64 94 09/05/17 19:00 82 80 09/05/17 16:24 97.4 F 79 18 117/65 98 09/05/17 11:45 97.2 F 68 18 110/60 92 Assessment: Left anterior total hip replacement doing well Plan: Patient will work with physical therapy and occupational therapy this morning. She will likely be discharged later today and when she goes home will begin physical therapy on Friday. We can change her current dressing out on Friday and place a Silverlon dressing which I gave the patient and to take to therapy. I filled out a physical therapy sheet for her for [facility]. She'll follow-up in my [place] clinic on September 10. Patient will continue with DVT prophylaxis with the possible flow pneumatic sequentials and 325 mg of aspirin twice a day. She will continue with weightbearing as tolerated with a walker for 2 weeks until she is weaned from the walker by therapy. Do not immerse dressing were leg in a bathtub sono or any form of water. Patient can shower and pat that area dry. If dressing does get wet it should be removed and leg dried in new Band-Aid applied.
--- NOTE | 2017-09-06 11:31 | PT.PROG ---
Progress Note Progress Note: S: Citlalli is doing well this AM and is looking forward to returning home. Pt would like to try her wheels on her walker and would like to get a toilet riser as she has difficulties getting up from lowered surface. O: Tx consisted of: amb x 200 ft with FWW and SBA x 1; 5 stairs with FWW and CGA x 1 for safety with 1 verbal cue for correct AD placement; MHP x 20 min to L hip; issued a toilet riser; 10 x STS and amb x 150 ft with FWW and SBA x 1 to room - pt was left in chair with alarm set and call light within reach. A: Citlalli is doing very well. Converted her standard walker into FWW and she was able to perform ambulation and stairs without any safety issues. Pt has met all goals for therapy. P: All goals met. D/c from PT.
--- NOTE | 2017-09-06 12:21 | OTI REPORT ---
Thank you for the referral of Citlalli Tai. She was seen on 09/04/17 for an occupational therapy inpatient evaluation status post left total hip arthroplasty. SUBJECTIVE: The patient is a 81-year-old female who is being seen today secondary to having a total hip arthroplasty. The patient lives at home with her . She was able to dress self and complete all activities prior to admission. They do live in a home that is one level once inside the home. They do have a walk in shower with a chair in it as well as grab bars throughout the shower. They also have a higher toilet. PAST MEDICAL HISTORY: Past medical history can be found in the patient's medical record. OBJECTIVE FINDINGS: Activities of daily living: Today the patient demonstrated difficulty dressing self without adaptive equipment. She was issued a regulatory manager, sock aide, bath sponge, and a long handled shoe horn and instructed in their use. The patient needed min assist to doff socks with use of the regulatory manager and min assist to don socks. She would benefit from at least one more session for education with this. She also needs contact guard to min assist for balance when pulling pants up to waist level. Transfers: The patient needs increased time to complete transfers. She was able to cue herself to kick her leg out prior to standing up or sitting down. The patient demonstrated being able to complete a toilet transfer with contact guard to min assist for balance. ASSESSMENT: The patient would benefit from at least one more session of OT to address using adaptive equipment and improving her overall ADLs and functional abilities. Short-Term Goals: To be met by discharge from inpatient: Patient will be able to complete a toilet transfer with stand by assist. Patient will be able to dress self with use of adaptive equipment with modified independence. Patient will be able to complete all functional transfers with min assist. Long-Term Goals: To be met following discharge from inpatient: Patient will return home demonstrating safety and independence with all ADLS and functional transfers. TREATMENT PLAN: Patient will be seen B.I.D during the week and one time per day over the weekend as an inpatient to address the above goals and objectives. INITIAL TREATMENT: Treatment today consisted of the initial evaluation activities only. MTDD
--- NOTE | 2017-09-06 12:53 | DCSUMMARY ---
Hospitalization Summary Admit Date: 09/02/2017 Discharge Date: 09/06/17 Primary Diagnosis:: status post left hip total arthroplasty Hospital Course: This very pleasant 81-year-old female that was admitted on September 02 for a left total hip arthroplasty done by Dr. King. See his surgical note for details of the procedure. Patient had long-standing osteoarthritis that was interfering with her daily activities and preventing her from walking and moving as well as she would like. She proceeded with surgery and postoperatively did very well. She did have some anemia postoperatively that improved after 2 units of blood. She had symptomatically anemia with lightheadedness, fatigue, and that all went away after blood transfusion. She did very well with physical therapy. For DVT prophylaxis she's doing aspirin 325 mg twice a day for 20-35 days. No exacerbations of her medical issues. She did have some constipation which resolved with the mineral oil enema. She is on her normal MiraLAX and Senokot. Today, no completes of chest pain, shortness breath, nausea or vomiting. Left hip pain is well controlled. Assessment and Plan: 1. As per discharge assessments noted 2. Disposition: Patient is discharged home. 3. Condition on discharge, stable and improved. 4. Diet: regular diet 5. Activities: As per orthopedics and as per physical therapy 6. Follow-Up: 1. Primary care provider in one week 2. 7. Medications at the Time of Discharge: Home Medications 3 Medication Instructions Recorded Confirmed Type atorvastatin 20 mg tablet 20 mg PO QDAY 07/02/17 09/02/17 History fluoxetine 10 mg capsule 10 mg PO QDAY cap 07/02/17 09/02/17 History fosinopril 20 mg tablet 20 mg PO QDAY tab 07/02/17 09/02/17 History meloxicam 15 mg tablet 15 mg PO QDAY PRN #30 tab 07/02/17 09/02/17 Rx Multivit-Min/Iron/Folic/Lutein 1 ea PO DAILY 09/02/17 09/02/17 History [Centrum Silver Women Tablet] Aspirin EC 325 mg PO BID tab 09/06/17 Rx HYDROcodone/APAP 7.5/325 Tab 1 - 2 tab PO Q4H PRN #50 tab 09/06/17 Rx [Calvin 7.5/325 Tab] Polyeth Glycol 3350 Packet 17 gm PO DAILY powd.pack 09/06/17 Rx [Miralax Packet] Senna-Docusate Sodium Tab 2 tab PO DAILY tab 09/06/17 Rx [Senokot-S Tablet] 8. Time, care, counseling and coordination of care for this discharge is less than 30 minutes. Exam - Vitals Vital Signs: Vital Signs Temperature 97.8 F Temperature Source Temporal Artery Scan Pulse Rate [Apical] 74 Pulse Rate [Pulse Oximeter] 74 Pulse Rate 85 Respiratory Rate 19 Blood Pressure [Left Arm] 120/65 Blood Pressure 100/48 Pulse Ox 91 Oxygen Flow Rate 1 Oxygen Delivery Method Room Air Height 5 ft 6 in Weight 181 lb - General General Appearance: No Acute Distress, Cooperative - Eye Eye Exam: POSITIVE: No Scleral Icterus - ENT ENT Exam: POSITIVE: Mucous Membranes Moist - Respiratory Respiratory Exam: POSITIVE: Clear to Auscultation - Bilaterally, Breathing Non Labored - Cardiovascular Cardiovascular Exam: POSITIVE: RRR, No Murmur, No Clicks, No Gallops, No Rubs, No JVD - GI/Abdominal GI/Abdominal Exam: POSITIVE: Normal Bowel Sounds, Non Tender, Non Distended, Soft - Extremities Extremities Exam: POSITIVE: No Clubbing Present, No Edema Present, No Cyanosis Present - Neurological Neurological Exam: POSITIVE: Alert, Oriented x 3, No Facial Droop, Speech Intact / Clear Additional Neurological Exam Details: Formal muscle strength testing was not performed in the lower extremities. But she was ambulatory with a frontwheel walker. Data Peritnent Studies: 09/05/17 09/05/17 04:28 04:28 WBC 8.25 RBC 3.71 L Hgb 11.1 L Hct 33.6 L MCV 90.6 MCH 29.9 MCHC 33.0 RDW Std Deviation 53.1 H RDW Coeff of Seda 16.5 H Plt Count 148 MPV 10.5 Sodium 138 Potassium 3.9 Chloride 98 Carbon Dioxide 29 Anion Gap 11 BUN 11 Creatinine 0.4 L Glucose 101 Calculated Osmolality 284.0 Calcium 9.1 Procedures: [address] [facility] [place] [address] PH: DD: [phone] FAX: [phone] ~DIAGNOSTIC IMAGING REPORT~ Patient: franco hargrove : 1935 Sex: F Age: 81 Exam Name: XR HIP COMPLETE MIN 2VW U/L Exam Date: 09/02/17 Report # : [id number] CPT Code: 31842 EMR/MR #: [id number] Ordering: BEST [facility]ING Admiting: Best King MD. Primary: NONE,NONE Attending: Best King MD. Signed XR HIP COMPLETE MIN 2VW U/L,09/02/2017 11:08 AM: Clinical History: Osteoarthritis of the left hip. Previous Exam: None at this facility. Findings: AP. View of the pelvis as well as an AP view of the left hip and a crosstable lateral view left hip are obtained, and demonstrate postsurgical changes consistent with a left total hip arthroplasty. Overlying skin anne-marie are noted. There is a Baptiste catheter is noted. Patient is status post transpedicular fusion of L5/S1. Mild degenerative changes are seen of the symphysis pubis. Impression: Status post left total hip arthroplasty. Dictated By: 09/02/17 1554 ARTEM RODRIGUEZ MD. Signed By: 09/02/17 1602 ARTEM RODRIGUEZ MD. Patient Problems - Patient Problem List (1) Status post left hip replacement Current Visit: Yes Status: Acute Code(s): Z96.642 - Presence of left artificial hip joint Category: Medical (2) Hypertension Current Visit: Yes Status: Acute Code(s): I10 - Essential (primary) hypertension Qualifiers: Hypertension type: essential hypertension Qualified Code(s): I10 - Essential (primary) hypertension Category: Medical (3) Hypercholesterolemia Current Visit: Yes Status: Acute Code(s): E78.00 - Pure hypercholesterolemia , unspecified Category: Medical (4) Arthritis of left hip Current Visit: No Status: Acute Code(s): M16.12 - Unilateral primary osteoarthritis, left hip Category: Medical (5) Anemia Current Visit: Yes Status: Acute Code(s): D64.9 - Anemia, unspecified Qualifiers: Anemia type: unspecified type Qualified Code(s): D64.9 - Anemia, unspecified Category: Medical
--- NOTE | 2017-09-06 13:18 | PT PM DAY ---
Diagnosis : Left Total Hip Arthroplasty PM - Physical Therapy S: The patient reports that she is planning on being discharged to home tomorrow. She reports her current pain level as 4/10 and states she is a little worn out from therapy this morning. O: Treatment today consisted of an application of a moist heat pack x20 minutes including set up to the left hip. The patient performed lower extremity strengthening exercises including quad sets, heel slides, short arc quads with a two pound ankle weight, hip abduction/adduction, NuStep x8 minutes , and sit to stand transfer with contact guard assist. The patient then ambulated 100 feet with contact guard assist with standard walker from the therapy gym to the stairwell. The patient ascended and descended 6 steps with min assist for cueing for walker placement, sequencing, and hand placement. The patient then ambulated 75 feet to her room and required min assist for sit to supine bed mobility. Assistance was needed to elevate the left lower extremity. At the end of treatment the patient returned to supine in bed with head of the bed elevated, call button within reach, alarms activated, and ice pack applied to the left hip. A: The patient progressed to needing minimal cueing for correct sequencing of ascending and descending stairs. The therapist discussed the progress with Dr. King. The patient is scheduled to discharge tomorrow after physical therapy treatment. The patient would benefit from continued skilled physical therapy in order to improve independence with functional mobility. P: Continue seeing patient BID during the week and one time per day over the weekend for transfers, ambulation, and range of motion/strengthening exercises. Dictated by: VALERY Clark Supervised by: JACQUELINE Dillard
--- NOTE | 2017-09-06 13:24 | PT AM DAY ---
Diagnosis : Left Total Hip Arthroplasty AM - Physical Therapy S: The patient reports having slight difficulty getting out of bed due to her hip and recent lumbar fusion. She reports that her pain has remained constant as they have started to decrease her pain medication. The patient states that she has four steps in her house with a bilateral railing. O: Treatment today consisted of a moist heat pack x20 minutes including set up to the left hip in supine. The patient performed lower extremity strengthening exercises including quad sets, heel slides, short arc quads with a two pound ankle weight, long arc quads, seated hip abduction/adduction, step ups onto a #3 box x8 bilaterally, and NuStep x5 minutes. The patient then ambulated 100 feet with contact guard assist from the therapy gym to the stairwell and was educated on the correct sequence for ascending and descending stairs with a unilateral rail and walker. The patient ascended and descended four steps with max cues needed for walker placement and hand placement. The patient then ambulated 75 feet to her room. Following treatment the patient was seated in bedside chair with call button within reach and alarms activated. Her spouse was also present in the room. A: The patient continues to show progress with progressive resistive exercises. The patient tolerated initiation of stair climbing in anticipation of discharging home where she will have to perform four steps to enter the house. P: Continue seeing patient BID during the week and one time per day over the weekend for transfers, ambulation, and range of motion/strengthening exercises. Dictated by: VALERY Clark Supervised by: JACQUELINE Dillard
== END 2017-09-06 13:36 | disposition home or self-care (01) | DRG 470 ==
LOC: OPS 09-02 05:53 → MED/SURG 09-02 12:14
PROVIDERS: ADMIT Orthopaedic Surgery; ATTEND Orthopaedic Surgery